=== PATIENT | male | born 1960 | race Asian ===

== ENCOUNTER 2023-06-19 16:26 | Inpatient (IN) | payer OTHER ==
[2023-06-19 17:44] LABS: BASO % 0.6 % (0-2.0); EOS % 0.7 % (0-4.5); HEMATOCRIT 46.7 % (35.4-49); HEMOGLOBIN 15.7 GM/dL (11.7-16.9); LYMPH % 15.8 % (8-40); MCH 30.8 pg (25.7-33.7); MCHC 33.7 g/dl (32.0-35.9); MEAN CELL VOLUME 91.4 fl (80-96); MEAN PLT VOLUME 7.2 fl (7.5-11.1); MONO % 5.5 % (3.8-10.2); NEUT % 77.4 % (42.8-82.8); PLATELET COUNT 226 10^3/uL (134-434); WHITE BLOOD COUNT 12.4 K/mm3 (4.0-10.0)
[2023-06-19] MEDS ORDERED: ACETAMINOPHEN INJECTION 100 ML IVPB ONE ×2 (17:45→21:24)
[2023-06-19] MEDS ORDERED: FAMOTIDINE 20 MG/50 ML IVPB 20 MG/50 ML MG IVPB ONE (17:45)
[2023-06-19] MEDS: ACETAMINOPHEN 1000 MG/100 ML BAG IVPB ONE (17:54)
[2023-06-19] MEDS: LACTATED RINGERS SOLUTION 1000 ML INFUS.BAG IV ONE (17:54)
[2023-06-19 18:21] LABS: CALCIUM 9.8 mg/dL (8.5-10.1)
[2023-06-19 18:22] LABS: ALBUMIN 4.4 g/dl (3.4-5.0); BLOOD UREA NITROGEN 10.9 mg/dL (7-18)
[2023-06-19 18:25] LABS: CREATININE 0.9 mg/dL (0.55-1.3)
[2023-06-19 18:26] LABS: BILIRUBIN,TOTAL 1.6 mg/dL (0.2-1)
[2023-06-19] MEDS: FAMOTIDINE 20 MG/50 ML IVPB 20 MG/50 ML MG IVPB ONE (18:36)
[2023-06-19 19:03] LABS: URINE APPEARANCE CLEAR; URINE BILIRUBIN NEGATIVE (NEGATIVE); URINE COLOR YELLOW; URINE GLUCOSE (UA) NEGATIVE (NEGATIVE); URINE KETONE NEGATIVE (NEGATIVE); URINE LEUK ESTERASE NEGATIVE (NEGATIVE); URINE NITRITE NEGATIVE (NEGATIVE); URINE PROTEIN NEGATIVE (NEGATIVE); URINE UROBILINOGEN 0.2 mg/dL (0.2-1.0)
[2023-06-19] MEDS ORDERED: PIPERACILLIN/TAZOB 4.5 GM 4.5 GM/100 ML BAG IVPB ONE (19:39)
[2023-06-19] MEDS: PIPERACILLIN/TAZOB 4.5 GM 4.5 GM in DEXTROSE 5%-WATER 100 ML IVPB ONE (19:45)
[2023-06-19 19:53] LABS: BILIRUBIN,DIRECT 0.3 mg/dL (0.0-0.2)
[2023-06-19] MEDS: ACETAMINOPHEN 1000 MG/100 ML BAG IVPB PRN (21:43)
[2023-06-19 22:40] VITALS: BMI 25.2
[2023-06-19] MEDS: morphine SULFATE 4 MG/ML VIAL IVPUSH PRN (22:55)
[2023-06-20] MEDS: DEXTROSE 5%-0.45% SALINE 1,000 ML IV SCH (00:10)
[2023-06-20] MEDS: PIPERACILLIN/TAZOB 4.5 GM 4.5 GM in DEXTROSE 5%-WATER 100 ML IVPB SCH ×3 (02:26→15:19)
[2023-06-20 07:53] LABS: INR 1.24 (0.83-1.09); PROTHROMBIN TIME (PATIENT) 14.3 SEC (9.7-13.0)
[2023-06-20 07:55] LABS: BASO % 0.2 % (0-2.0); LYMPH % 6.5 % (8-40); MCH 30.6 pg (25.7-33.7); MCHC 33.3 g/dl (32.0-35.9); MEAN CELL VOLUME 91.7 fl (80-96); MEAN PLT VOLUME 8.1 fl (7.5-11.1); MONO % 3.3 % (3.8-10.2); PLATELET COUNT 198 10^3/uL (134-434); RBC 4.91 M/mm3 (4.00-5.60); WHITE BLOOD COUNT 7.1 K/mm3 (4.0-10.0)
[2023-06-20 08:05] LABS: POTASSIUM 4.7 mmol/L (3.5-5.1)
[2023-06-20 08:08] LABS: BLOOD UREA NITROGEN 12.3 mg/dL (7-18); CALCIUM 8.9 mg/dL (8.5-10.1)
[2023-06-20] MEDS ORDERED: FENTANYL CITRATE/PF 50 MCG/ML VIAL ONE (10:02)
[2023-06-20] MEDS ORDERED: PROPOFOL 40 ML ONE (10:03)
[2023-06-20] MEDS ORDERED: SUCCINYLCHOLINE CHLORIDE 200 MG/10 ML SYRINGE ONE (10:03)
[2023-06-20] MEDS ORDERED: ROCURONIUM BROMIDE 50 MG/5 ML SYRINGE ONE (10:03)
[2023-06-20] MEDS ORDERED: MIDAZOLAM HCL 2 MG/2 ML SINGLE DOSE VIAL ONE (10:03)
[2023-06-20] MEDS ORDERED: ONDANSETRON 4 MG/2 ML VIAL IVPUSH PRN (10:16)
[2023-06-20] MEDS ORDERED: BUPIVACAINE HCL/PF 0.5% (5MG/ML) 10 ML VIAL ONE (10:34)
[2023-06-20] MEDS ORDERED: HYDROmorphone HCl 2 MG/ML VIAL ONE (10:52)
[2023-06-20] MEDS ORDERED: PROPOFOL 20 ML ONE (11:40)
[2023-06-20] MEDS: LACTATED RINGERS SOLUTION 1,000 ML/1,000 ML INFUS.BAG IV SCH (12:30)
[2023-06-20] MEDS ORDERED: ACETAMINOPHEN 1000 MG/100 ML BAG IVPB PRN (12:42)
[2023-06-20] MEDS ORDERED: morphine SULFATE 4 MG/ML VIAL IVPUSH PRN (12:42)
[2023-06-20] MEDS: LACTATED RINGERS SOLUTION 1,000 ML IV SCH (14:38)
[2023-06-21 08:53] LABS: BASO % 0.1 % (0-2.0); HEMATOCRIT 39.4 % (35.4-49); LYMPH % 7.1 % (8-40); MCH 30.5 pg (25.7-33.7); MCHC 32.9 g/dl (32.0-35.9); MEAN CELL VOLUME 92.6 fl (80-96); MEAN PLT VOLUME 7.9 fl (7.5-11.1); MONO % 3.5 % (3.8-10.2); NEUT % 89.3 % (42.8-82.8); PLATELET COUNT 185 10^3/uL (134-434); RBC 4.26 M/mm3 (4.00-5.60); RDW 13.4 % (11.9-15.9); WHITE BLOOD COUNT 11.3 K/mm3 (4.0-10.0)
[2023-06-21 09:23] LABS: CALCIUM 8.8 mg/dL (8.5-10.1)
[2023-06-21 09:24] LABS: BLOOD UREA NITROGEN 12.9 mg/dL (7-18)
[2023-06-21 09:28] LABS: BILIRUBIN,TOTAL 1.3 mg/dL (0.2-1)
[2023-06-21 09:32] LABS: ALBUMIN 2.8 g/dl (3.4-5.0); TOT PROT 5.7 g/dl (6.4-8.2)
[2023-06-21] MEDS: PIPERACILLIN/TAZOB 3.375 GM 3.375 GM in DEXTROSE 5%-WATER - 50 ML IVPB SCH (10:54)
[2023-06-21] MEDS: LACTATED RINGERS SOLUTION 1,000 ML/1,000 ML INFUS.BAG IV SCH (18:08)
[2023-06-21] MEDS: ACETAMINOPHEN 1000 MG/100 ML BAG IVPB PRN (20:13)
[2023-06-21] MEDS: DOCUSATE SODIUM 100 MG CAPSULE (FP) PO SCH (21:24)
[2023-06-22] MEDS: ONDANSETRON 4 MG/2 ML VIAL IVPUSH ONE (05:03)
[2023-06-22 08:54] LABS: BASO % 0.1 % (0-2.0); EOS % 0.6 % (0-4.5); HEMATOCRIT 39.8 % (35.4-49); HEMOGLOBIN 13.3 GM/dL (11.7-16.9); LYMPH % 6.1 % (8-40); MCHC 33.5 g/dl (32.0-35.9); MEAN CELL VOLUME 92.4 fl (80-96); MEAN PLT VOLUME 7.6 fl (7.5-11.1); MONO % 3.9 % (3.8-10.2); NEUT % 89.3 % (42.8-82.8); PLATELET COUNT 209 10^3/uL (134-434); RBC 4.31 M/mm3 (4.00-5.60); WHITE BLOOD COUNT 9.7 K/mm3 (4.0-10.0)
[2023-06-22 09:08] LABS: POTASSIUM 4.2 mmol/L (3.5-5.1)
[2023-06-22 09:13] LABS: ALBUMIN 2.9 g/dl (3.4-5.0); BLOOD UREA NITROGEN 12.3 mg/dL (7-18); CALCIUM 9.3 mg/dL (8.5-10.1)
[2023-06-22 09:16] LABS: CREATININE 0.9 mg/dL (0.55-1.3)
[2023-06-22 09:18] LABS: BILIRUBIN,TOTAL 1.2 mg/dL (0.2-1); TOT PROT 6.3 g/dl (6.4-8.2)
[2023-06-23 08:26] LABS: BASO % 0.4 % (0-2.0); EOS % 4.4 % (0-4.5); HEMATOCRIT 38.6 % (35.4-49); HEMOGLOBIN 12.8 GM/dL (11.7-16.9); MCH 30.6 pg (25.7-33.7); MCHC 33.2 g/dl (32.0-35.9); MEAN CELL VOLUME 92.1 fl (80-96); MEAN PLT VOLUME 7.4 fl (7.5-11.1); MONO % 6.7 % (3.8-10.2); NEUT % 75.5 % (42.8-82.8); PLATELET COUNT 237 10^3/uL (134-434); RBC 4.19 M/mm3 (4.00-5.60); RDW 13.2 % (11.9-15.9); WHITE BLOOD COUNT 8.3 K/mm3 (4.0-10.0)
[2023-06-23 09:32] LABS: POTASSIUM 3.7 mmol/L (3.5-5.1)
[2023-06-23 09:34] LABS: ALBUMIN 2.6 g/dl (3.4-5.0); BLOOD UREA NITROGEN 12.2 mg/dL (7-18); CALCIUM 8.6 mg/dL (8.5-10.1); CREATININE 0.8 mg/dL (0.55-1.3); TOT PROT 5.7 g/dl (6.4-8.2)
[2023-06-24 10:01] LABS: BASO % 0.3 % (0-2.0); EOS % 2.9 % (0-4.5); HEMATOCRIT 38.9 % (35.4-49); HEMOGLOBIN 13.2 GM/dL (11.7-16.9); LYMPH % 14.3 % (8-40); MCH 30.9 pg (25.7-33.7); MEAN CELL VOLUME 90.8 fl (80-96); MEAN PLT VOLUME 7.4 fl (7.5-11.1); NEUT % 74.5 % (42.8-82.8); PLATELET COUNT 262 10^3/uL (134-434); RBC 4.28 M/mm3 (4.00-5.60); WHITE BLOOD COUNT 7.8 K/mm3 (4.0-10.0)
[2023-06-24 10:11] LABS: CALCIUM 8.9 mg/dL (8.5-10.1)
[2023-06-24 10:12] LABS: ALBUMIN 2.8 g/dl (3.4-5.0); BLOOD UREA NITROGEN 15.1 mg/dL (7-18)
[2023-06-24 10:14] LABS: CREATININE 0.8 mg/dL (0.55-1.3)
[2023-06-24 10:16] LABS: TOT PROT 5.9 g/dl (6.4-8.2)
[2023-06-26 15:27] VITALS: BP 140/78; PULSE 71; RESP 18; TEMP 98.1
== END 2023-06-26 15:43 | disposition home or self-care (01) | DRG 225 ==
LOC: JER 16:26 → JERBED 20:09 → INTOOBSV 20:09 → J7W 22:21 → J8W 06-20 14:30 → OBSVTOIN 06-22 10:10
PROVIDERS: ADMIT Internal Medicine; ATTEND Internal Medicine
PROC: 0DTJ4ZZ Resection of Appendix, Percutaneous Endoscopic Approach (ICD-10-PCS; principal; 2023-06-20 10:00)
PROC: 0D9670Z Drainage of Stomach with Drainage Device, Via Natural or Artificial Opening (ICD-10-PCS; 2023-06-22)
DX: K35.32 Acute appendicitis with perforation, localized peritonitis, and gangrene, without abscess (principal); K91.89 Other postprocedural complications and disorders of digestive system; K56.7 Ileus, unspecified; Y83.8 Other surgical procedures as the cause of abnormal reaction of the patient, or of later complication, without mention of misadventure at the time of the procedure
CPT/HCPCS: 0241U-QW; 36415; 74019-TC-FY; 74177-TC; 74190-TC-FY; 80048; 80053; 81003; 82248; 83605; 83690; 84484; 85025; 85610; 86850; 86900; 86901; 87040; 87070; 87075; 87076; 87186; 87205; 88304-TC; 93005; 93010; 94760; 99285-25; G0378; J0131; Q9967

== ENCOUNTER 2023-07-19 15:36 | Emergency (ER) | payer OTHER ==
[2023-07-19 15:48] VITALS: BMI 25.2
[2023-07-19] MEDS ORDERED: ACETAMINOPHEN INJECTION 100 ML IVPB ONE (17:44)
[2023-07-19] MEDS ORDERED: MAG HYDROX/AL HYDROX/SIMETH 30 ML UNIT-DOSE CUP ONE (17:44)
[2023-07-19] MEDS ORDERED: FAMOTIDINE 20 MG TABLET ONE (17:44)
[2023-07-19] MEDS: ACETAMINOPHEN 1000 MG/100 ML BAG IVPB ONE (17:59)
[2023-07-19] MEDS: MAG HYDROX/AL HYDROX/SIMETH 30 ML UNIT-DOSE CUP PO ONE (17:59)
[2023-07-19] MEDS: FAMOTIDINE 10 MG TABLET PO ONE (17:59)
[2023-07-19 18:00] LABS: BASO % 0.6 % (0-2.0); EOS % 2.4 % (0-4.5); HEMATOCRIT 45.6 % (35.4-49); HEMOGLOBIN 15.4 GM/dL (11.7-16.9); LYMPH % 32.8 % (8-40); MCH 30.3 pg (25.7-33.7); MCHC 33.8 g/dl (32.0-35.9); MEAN CELL VOLUME 89.6 fl (80-96); MEAN PLT VOLUME 7.4 fl (7.5-11.1); MONO % 4.8 % (3.8-10.2); NEUT % 59.4 % (42.8-82.8); PLATELET COUNT 212 10^3/uL (134-434); RBC 5.09 M/mm3 (4.00-5.60); RDW 13.2 % (11.9-15.9); WHITE BLOOD COUNT 6.4 K/mm3 (4.0-10.0)
[2023-07-19] MEDS: FAMOTIDINE 20 MG/50 ML IVPB 20 MG/50 ML MG IVPB ONE (18:00)
[2023-07-19 18:19] LABS: POTASSIUM 4.7 mmol/L (3.5-5.1)
[2023-07-19 18:21] LABS: CALCIUM 9.6 mg/dL (8.5-10.1)
[2023-07-19 18:22] LABS: ALBUMIN 3.7 g/dl (3.4-5.0); BLOOD UREA NITROGEN 8.8 mg/dL (7-18)
[2023-07-19 18:25] LABS: CREATININE 0.9 mg/dL (0.55-1.3)
[2023-07-19 18:26] LABS: BILIRUBIN,TOTAL 0.6 mg/dL (0.2-1); TOT PROT 7.6 g/dl (6.4-8.2)
[2023-07-19 18:42] LABS: INR 1.01 (0.83-1.09); PROTHROMBIN TIME (PATIENT) 11.4 SEC (9.7-13.0)
[2023-07-19 18:45] LABS: ACTIVATED PTT 43.4 SECONDS (25.2-36.5)
[2023-07-19 20:25] VITALS: BP 125/79; PULSE 69; RESP 17; TEMP 97.7
== END 2023-07-19 19:42 | disposition home or self-care (01) ==
LOC: JER 15:36
PROC: 3E030NZ Introduction of Analgesics, Hypnotics, Sedatives into Peripheral Vein, Open Approach (ICD-10-PCS; principal; 2023-07-19)
DX: R10.13 Epigastric pain (principal)
CPT/HCPCS: 36415; 71046-TC-FY; 76705-TC; 80053; 83690; 84484; 85025; 85610; 85730; 86850; 86900; 86901; 93005; 93010; 99285-25; J0131

== ENCOUNTER 2023-12-23 23:13 | Emergency (ER) | payer OTHER ==
[2023-12-23 23:21] VITALS: BP 161/80; PULSE 69; RESP 16; TEMP 98.5; BMI 20.7
[2023-12-24] MEDS ORDERED: ONDANSETRON 4 MG/2 ML VIAL ONE (00:14)
[2023-12-24] MEDS ORDERED: ACETAMINOPHEN INJECTION 100 ML ONE (00:14)
[2023-12-24] MEDS ORDERED: MAG HYDROX/AL HYDROX/SIMETH 30 ML UNIT-DOSE CUP ONE (00:14)
[2023-12-24] MEDS: ACETAMINOPHEN 1000 MG/100 ML BAG IVPB ONE (00:44)
[2023-12-24] MEDS: SODIUM CHLORIDE 0.9% 500 ML INFUS.BAG IV ONE (00:44)
[2023-12-24] MEDS: ONDANSETRON 4 MG/2 ML VIAL IVPB ONE (00:44)
[2023-12-24 00:47] LABS: BASO % 0.5 % (0-2.0); HEMOGLOBIN 15.3 GM/dL (11.7-16.9); LYMPH % 19.9 % (8-40); MCH 30.4 pg (25.7-33.7); MCHC 34.1 g/dl (32.0-35.9); MEAN CELL VOLUME 89.1 fl (80-96); MEAN PLT VOLUME 7.4 fl (7.5-11.1); MONO % 3.8 % (3.8-10.2); NEUT % 74.8 % (42.8-82.8); PLATELET COUNT 224 10^3/uL (134-434); RBC 5.05 M/mm3 (4.00-5.60); RDW 13.5 % (11.9-15.9); WHITE BLOOD COUNT 10.1 K/mm3 (4.0-10.0)
[2023-12-24] MEDS ORDERED: FAMOTIDINE 20 MG/50 ML IVPB 20 MG/50 ML MG IVPB ONE (00:57)
[2023-12-24] MEDS: MAG HYDROX/AL HYDROX/SIMETH 30 ML UNIT-DOSE CUP PO ONE (00:57)
[2023-12-24] MEDS: FAMOTIDINE 20 MG/50 ML IVPB 20 MG/50 ML MG IVPB ONE (01:01)
[2023-12-24 01:08] LABS: CALCIUM 9.4 mg/dL (8.5-10.1)
[2023-12-24 01:10] LABS: ALBUMIN 4.2 g/dl (3.4-5.0); BLOOD UREA NITROGEN 15.1 mg/dL (7-18)
[2023-12-24 01:12] LABS: CREATININE 0.9 mg/dL (0.55-1.3)
[2023-12-24 01:13] LABS: BILIRUBIN,TOTAL 0.6 mg/dL (0.2-1)
[2023-12-24 01:14] LABS: TOT PROT 7.6 g/dl (6.4-8.2)
[2023-12-24 02:07] LABS: HIV INTERPRETATION NEGATIVE (NEGATIVE)
== END 2023-12-24 02:12 | disposition home or self-care (01) ==
LOC: JER 23:13
PROC: 3E033GC Introduction of Other Therapeutic Substance into Peripheral Vein, Percutaneous Approach (ICD-10-PCS; principal; 2023-12-24)
PROC: 3E033NZ Introduction of Analgesics, Hypnotics, Sedatives into Peripheral Vein, Percutaneous Approach (ICD-10-PCS; 2023-12-24)
PROC: 3E033GC Introduction of Other Therapeutic Substance into Peripheral Vein, Percutaneous Approach (ICD-10-PCS; 2023-12-24)
DX: R11.2 Nausea with vomiting, unspecified (principal)
CPT/HCPCS: 36415; 71045-TC-FY; 80053; 83690; 84484; 85025; 86803; 87389; 93005; 93010; 99285-25; J0131

== ENCOUNTER 2024-10-28 17:44 | Emergency (ER) | payer OTHER ==
[2024-10-28 18:01] VITALS: BP 154/87; PULSE 64; RESP 19; TEMP 97.5; BMI 25.0
[2024-10-28] MEDS ORDERED: FAMOTIDINE 20 MG/50 ML IVPB 20 MG/50 ML MG IVPB ONE (18:25)
[2024-10-28] MEDS ORDERED: ACETAMINOPHEN INJECTION 100 ML ONE (18:25)
[2024-10-28] MEDS ORDERED: ONDANSETRON 4 MG/2 ML VIAL ONE (18:25)
[2024-10-28] MEDS: ACETAMINOPHEN 1000 MG/100 ML BAG IVPB ONE (18:51)
[2024-10-28] MEDS: SODIUM CHLORIDE 0.9% 500 ML INFUS.BAG IV ONE (18:52)
[2024-10-28] MEDS: FAMOTIDINE 20 MG/50 ML IVPB 20 MG/50 ML MG IVPB ONE (18:52)
[2024-10-28] MEDS: ONDANSETRON 4 MG/2 ML VIAL IVPUSH ONE (18:52)
[2024-10-28 18:54] LABS: ABSOLUTE IMMATURE GRANULOCYTES 0.02 x10^3/uL (0.0-0.031); BASOPHILS # 0.03 x10^3/uL (0.01-0.08); EOSINOPHIL % 1.6 % (0.8-7.0); EOSINOPHILS # 0.10 x10^3/uL (0.04-0.54); MCHC 32.7 g/dl (32.3-36.5); MEAN CELL VOLUME 91.8 fl (79.0-92.2); MEAN PLT VOLUME 9.0 fl (9.4-12.4); MONOCYTE # 0.29 x10^3/uL (0.30-0.82); MONOCYTE % 4.7 % (5.3-12.2); RDW 13.0 % (12.2-16.4)
[2024-10-28 19:08] LABS: INR 1.02 (0.83-1.09); PROTHROMBIN TIME (PATIENT) 11.1 SEC (9.7-13.0)
[2024-10-28 19:10] LABS: ACTIVATED PTT 42.3 SECONDS (25.2-36.5)
[2024-10-28] MEDS ORDERED: SIMETHICONE 80 MG TAB.CHEW (FP) ONE (19:17)
[2024-10-28 19:19] LABS: GLUCOSE,RANDOM 98.0 mg/dL (74-106); TOT PROT 7.5 g/dl (6.4-8.2)
[2024-10-28 19:20] LABS: CO2 27.0 mmol/L (21-32)
[2024-10-28 19:22] LABS: ALK PHOS 70.0 U/L (40-150)
[2024-10-28] MEDS: SIMETHICONE 80 MG TAB.CHEW (FP) PO ONE (19:22)
[2024-10-28 19:24] LABS: SGOT/AST 24.0 U/L (5-34); SGPT/ALT 16.0 U/L (0-55)
[2024-10-28 19:25] LABS: CREATININE 0.92 mg/dL (0.55-1.3)
[2024-10-28 19:33] LABS: URINE APPEARANCE CLEAR; URINE BILIRUBIN NEGATIVE (NEGATIVE); URINE COLOR YELLOW; URINE GLUCOSE (UA) NEGATIVE (NEGATIVE); URINE KETONE NEGATIVE (NEGATIVE); URINE LEUK ESTERASE NEGATIVE (NEGATIVE); URINE NITRITE NEGATIVE (NEGATIVE); URINE PROTEIN TRACE (NEGATIVE); URINE UROBILINOGEN 0.2 mg/dL (0.2-1.0)
[2024-10-28 19:45] LABS: HCV DIAGNOSTIC IN-HOUSE W/RFLX NON-REACTIVE (NONREACTIVE); HIV INTERPRETATION NEGATIVE (NEGATIVE)
[2024-10-28] MEDS: CEFTRIAXONE 1 GM in DEXTROSE 5%-WATER - 100 ML IVPB ONE (21:49)
[2024-10-28] MEDS: MAG HYDROX/AL HYDROX/SIMETH 30 ML UNIT-DOSE CUP PO ONE (22:35)
[2024-10-28] MEDS ORDERED: MAG HYDROX/AL HYDROX/SIMETH 30 ML UNIT-DOSE CUP ONE (22:40)
== END 2024-10-28 22:48 | disposition home or self-care (01) ==
LOC: JER 17:44
PROC: 3E033GC Introduction of Other Therapeutic Substance into Peripheral Vein, Percutaneous Approach (ICD-10-PCS; principal; 2024-10-28)
PROC: 3E033GC Introduction of Other Therapeutic Substance into Peripheral Vein, Percutaneous Approach (ICD-10-PCS; 2024-10-28)
PROC: 3E033NZ Introduction of Analgesics, Hypnotics, Sedatives into Peripheral Vein, Percutaneous Approach (ICD-10-PCS; 2024-10-28)
DX: R10.13 Epigastric pain (principal); R11.0 Nausea; R14.0 Abdominal distension (gaseous)
CPT/HCPCS: 36415; 71045-TC-FY; 74177-TC; 80053; 81003; 83690; 84484; 85025; 85610; 85730; 86803; 86850; 86900; 86901; 87086; 87389; 93005; 93010; 99285-25; Q9967